=== PATIENT | male | born 1985 | race Caucasian/White ===

== ENCOUNTER 2023-03-28 23:30 | Inpatient (IN) | payer OTHER, SELFPAY ==
[2023-03-29] MEDS ORDERED: Ketorolac Tromethamine 30 MG/ML VIAL ONE (00:05)
[2023-03-29 00:11] LABS: #Basophils 0.1 10x3/uL (0.0-0.2); #Monocytes 0.4 10x3/uL (0.0-1.1); #Neutrophils 9.5 10x3/uL (1.5-8.4); %Basophils 0.7 % (0.0-2.0); %Eosinophils 0.2 % (0.0-6.0); %Lymphocytes 17.3 % (18.0-47.0); %Neutrophils 78.4 % (40.0-75.0); Hemoglobin 10.4 g/dL (13.5-17.5); Mean Corpuscular HGB CONC 31.1 g/dL (32.0-36.0); Mean Corpuscular Volume 80.3 fl (81.2-95.1); Mean Platelet Volume 8.3 fl (7.4-10.4); Platelet Count 324 10x3/uL (150-450); RBC Distribution Width 15.6 % (11.5-14.5); Red Blood Cell (RBC) Count 4.16 10x6/uL (4.32-5.72); White Blood Cell (WBC) Count 12.2 10x3/uL (3.5-10.5)
[2023-03-29] MEDS ORDERED: Clindamycin/D5W 300 MG in Premix Bag 1 BAG IVPB ONE (00:15)
[2023-03-29] MEDS ORDERED: Ondansetron PF 4 MG/2 ML Vial IVP PRN ×2 (02:00→17:27)
[2023-03-29] MEDS ORDERED: Acetaminophen 325 MG TAB PO PRN (02:00)
[2023-03-29] MEDS ORDERED: Ondansetron ODT 4 MG TAB SL PRN (02:00)
[2023-03-29] MEDS: Sodium Chloride 0.9% 1,000 ML IV SCH ×3 (02:19→18:43)
[2023-03-29 02:24] VITALS: BMI 18.1
[2023-03-29] MEDS ORDERED: Sodium Chloride 0.65% Nasal 44 ML BOT EA NARE PRN (06:19)
[2023-03-29] MEDS ORDERED: Oxymetazoline HCl 0.05% ( 15 ML ) NASAL PRN ×2 (06:19→17:26)
[2023-03-29] MEDS ORDERED: Iopamidol 300 61% 100 ML VIAL FS ONE (10:14)
[2023-03-29] MEDS ORDERED: Acetaminophen 650 MG/20.3 ML UDCUP PO PRN (11:49)
[2023-03-29] MEDS ORDERED: Acetaminophen W/ Codeine 5 ML UDCUP PO PRN (17:22)
[2023-03-29] MEDS: Acetaminophen 650 MG/20.3 ML UDCUP PO PRN ×2 (18:42→23:35)
[2023-03-30] MEDS: Sodium Chloride 0.9% 1,000 ML IV SCH ×4 (02:04→21:25)
[2023-03-30 04:21] LABS: #Basophils 0.1 10x3/uL (0.0-0.2); #Eosinphils 0.2 10x3/uL (0.0-0.5); #Monocytes 0.5 10x3/uL (0.0-1.1); #Neutrophils 3.8 10x3/uL (1.5-8.4); %Basophils 1.6 % (0.0-2.0); %Eosinophils 2.7 % (0.0-6.0); %Lymphocytes 38.4 % (18.0-47.0); %Neutrophils 51.2 % (40.0-75.0); Hemoglobin 10.8 g/dL (13.5-17.5); Mean Corpuscular HGB CONC 31.1 g/dL (32.0-36.0); Mean Corpuscular Volume 80.3 fl (81.2-95.1); Platelet Count 367 10x3/uL (150-450); RBC Distribution Width 15.6 % (11.5-14.5); Red Blood Cell (RBC) Count 4.32 10x6/uL (4.32-5.72); White Blood Cell (WBC) Count 7.5 10x3/uL (3.5-10.5)
[2023-03-30 04:31] LABS: Anion Gap 13 mmol/L (10-20); BUN (Urea Nitrogen) 8 mg/dL (8.9-20.6); Calc. Creatinine Clearance 101 mL/min (70-130); Calcium 8.5 mg/dL (7.8-10.44); Carbon Dioxide 27 mmol/L (22-29); Chloride 103 mmol/L (98-107); Estimated GFR 117; Glucose 96 mg/dL (70-105); Potassium 4.5 mmol/L (3.5-5.1); Sodium 138 mmol/L (136-145)
[2023-03-30 04:37] LABS: INR-International Normal Ratio 1.1; Prothrombin Time 11.4 sec (9.5-12.1)
[2023-03-30] MEDS ORDERED: PROPOFOL 20 ML ONE (07:30)
[2023-03-30] MEDS ORDERED: Fentanyl 100 MCG/2 ML VIAL ONE ×2 (07:30→11:06)
[2023-03-30] MEDS ORDERED: Midazolam HCl 2 mg/2 ml Vial ONE (07:30)
[2023-03-30] MEDS ORDERED: Lidocaine 1% PF 5 ML VIAL ONE (07:32)
[2023-03-30] MEDS ORDERED: Dexamethasone 20 MG/5 ML VIAL ONE (07:32)
[2023-03-30] MEDS ORDERED: Ondansetron PF 4 MG/2 ML Vial ONE (07:32)
[2023-03-30] MEDS ORDERED: Lidocaine 2% PF 5 ML VIAL ONE (07:39)
[2023-03-30] MEDS ORDERED: Succinylcholine 200 MG/10 ml SYRINGE FS ONE (07:43)
[2023-03-30] MEDS ORDERED: Oxymetazoline HCl 0.05% ( 15 ML ) ONE ×2 (08:19→10:01)
[2023-03-30] MEDS ORDERED: PHENYLEPHRINE-NS 100 MCG/ML 10 ML SYRINGE ONE ×3 (08:21→09:06)
[2023-03-30] MEDS ORDERED: HYDROcodone/Acetaminophen 7.5/325 mg Tablet PO PRN (14:50)
[2023-03-30] MEDS: Morphine 2 MG/ML VIAL SLOW IVP PRN ×2 (15:28→21:14)
[2023-03-30] MEDS: Hydrocodone-Acetamin 15 ML UDCUP PO PRN (17:47)
[2023-03-30] MEDS: SMX/TMP 800-160mg/20 ML UDCUP PO SCH (21:14)
[2023-03-31] MEDS: Hydrocodone-Acetamin 15 ML UDCUP PO PRN ×2 (03:56→11:43)
[2023-03-31] MEDS: Morphine 2 MG/ML VIAL SLOW IVP PRN ×3 (03:56→17:04)
[2023-03-31] MEDS: Sodium Chloride 0.9% 1,000 ML IV SCH (07:02)
[2023-03-31] MEDS: SMX/TMP 800-160mg/20 ML UDCUP PO SCH (08:14)
[2023-03-31 16:39] VITALS: BP 128/86; TEMP 97.9
== END 2023-03-31 18:57 | disposition short-term general hospital (02) | DRG 182 ==
LOC: CSHERS 23:30 → CSHTELE 03-29 01:56 → OBSVTOIN 03-30 16:15
PROVIDERS: ADMIT Family Medicine; ATTEND Family Medicine
PROC: 09BK8ZX Excision of Nasal Mucosa and Soft Tissue, Via Natural or Artificial Opening Endoscopic, Diagnostic (ICD-10-PCS; principal; 2023-03-30)
PROC: 093K8ZZ Control Bleeding in Nasal Mucosa and Soft Tissue, Via Natural or Artificial Opening Endoscopic (ICD-10-PCS; 2023-03-30)
PROC: 0CBM8ZX Excision of Pharynx, Via Natural or Artificial Opening Endoscopic, Diagnostic (ICD-10-PCS; 2023-03-30)
DX: D49.1 Neoplasm of unspecified behavior of respiratory system (principal); R04.0 Epistaxis; H66.92 Otitis media, unspecified, left ear; J30.9 Allergic rhinitis, unspecified; Z88.0 Allergy status to penicillin; F17.210 Nicotine dependence, cigarettes, uncomplicated
CPT/HCPCS: 36415; 80048; 85025; 85610; 85730; 88305; 88331; 94640; 94760; 96365; 96375; G0378; J1100; J1885; J2001; J2250; J2272; J2405; J2704; J3010; J3490; J7050; Q9967